=== PATIENT | female | born 1980 | race Caucasian/White ===

== ENCOUNTER → 2017-03-28 | Day surgery (SDC) | payer BC ==
[~2017-03-28] MED LIST: ACETAMINOPHEN 1000 MG/100 ML 100 ML IV ONE; BUPIVACAINE HCL PF 0.5% 30 ML VIAL ONE; CHLORHEXIDINE GLUCONATE 2 % 1 PACK (2 CLOTHS) TOPICAL PRN; DEXAMETHASONE SOD PHOS 4 MG/ML VIAL IV ONE; DO NOT ADM ANY ANTICOAGULANT DRUGS PRN; FERRIC SUBSULFATE 8 ML TOP SOLN TOPICAL ONE; GLYCOPYRROLATE 1 MG/5 ML SYRINGE IV PUSH ONE; GUMMCHW PO; INSULIN HUMAN REGULAR 1,000 UNITS/10 ML VIAL SQ PRN; KETOROLAC TROMETHAMINE 30 MG/ML (IVP) VIAL IV PUSH ONE; LACTATED RINGER'S 1000 ML IV PRN; LIDOCAINE 0.5%/EPINEPHrine 1:200,000 SOLN 50 ML VIAL ONE; LIDOCAINE HCL 1% PF 5 ML AMPULE OTHER ONE; LISI10TA3 PO; METOPROLOL TARTRATE 25 MG TAB PO PRN; MIDAZOLAM HCL 2 MG/2 ML VIAL IV ONE; NEOSTIGMINE 3 MG/3 ML SYR IV ONE; ONDANSETRON HCL 4 MG/2 ML VIAL IV PUSH ONE; PHENYLEPH/NS 1000 MCG/10 ML SYR IV ONE; POVIDONE IODINE 5% (ANTISEPSIS KIT) 4 APPLICATIONS EACH NARE PRN; PROPOFOL 200 MG/20 ML AMP IV ONE; ROCURONIUM INJ 50 MG/5 ML SYRINGE IV PUSH ONE; SACC1CAP3 PO; SODIUM CHLORID 0.9% 500 ML IV PRN; TYLE325T PO; ceFAZolin INJ 1,000 MG VIAL ONE; metroNIDAZOLE 500 MG INJ 100 ML IV ONE
[2017-03-28 13:40] LABS: AUTOMATED NEUTROPHIL # 6.4 TH/MM3 (1.8-7.7); BASOPHIL % 0.4 % (0.0-2.0); EOSINOPHIL # 0.1 TH/MM3 (0-0.4); EOSINOPHIL % 1.6 % (0.0-4.0); HEMATOCRIT 44.6 % (35.0-46.0); HEMOGLOBIN 15.3 GM/DL (11.6-15.3); LYMPH % 22.5 % (9.0-44.0); MEAN CORPUSCULAR HGB CONC 34.4 % (32.0-36.0); MEAN PLATELET VOLUME 9.1 FL (7.0-11.0); MONO % 4.6 % (0.0-8.0); MONOCYTE # 0.4 TH/MM3 (0-0.9); NEUT % 70.9 % (16.0-70.0); PLATELET COUNT 273 TH/MM3 (150-450); RED BLOOD COUNT 4.95 MIL/MM3 (4.00-5.30)
[2017-03-28 17:40] VITALS: BP 119/59; PULSE 80; RESP 20; TEMP 97.3; O2SAT 97
--- NOTE | 2017-03-29 07:27 | MP ---
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 PROCEDURE Fistulotomy and curettage of fistula tract. ANESTHESIA General endotracheal SURGEON Dr. Jacobson S[employer]VERL[employer] DEVELOPER Dr. Leong ESTIMATED BLOOD LOSS 5 cc OPERATIVE FINDINGS [place] four [place] ago with a previously multiple times drained left anterior ischiorectal abscess. The patient had multiple incision and drainages of this abscess and continued to drain pus and would not heal. Therefore, we felt as if this was probably due to a fistula in ano. It has probably been going on for about seven months. At surgery today, the external opening was identified and there was an iodoform gauze packed in the external opening previously by the patient that was removed. A fistula probe was placed and the fistula tracked to the left ischiorectal fossa anteriorly to around the dentate line in the midline. It did not involve the anorectal ring, but did involve some subcutaneous external sphincter and a small portion of the internal sphincter. Fistulotomy was done and outside of the sphincter complex to the left of the vagina, a blind sinus tract was noted above that area. This was curetted clean, as well as the base of the fistula site. Because it did not include a large amount of the sphincter muscle complex, I did not elected to do an anterior advancement flap. OPERATIVE TECHNIQUE The patient was placed on table in the prone position after adequate general tracheal anesthesia with the buttocks taped apart. The buttocks and perianal region was prepped and draped in the usual manner and then the perianal region was injected with 0.5% Xylocaine with epinephrine mixed with an equal amount of 0.5% Marcaine using approximately 30 cc in the subcutaneous and submucosal region circumanally. Once this was done, the Pa bivalve was inserted into the anal canal and the external opening was identified and the curved probe was placed in the external opening and the probe tracked anteriorly to the anterior midline at the dentate line identifying the internal opening of the fistula which was wide open and chronically scarred. Fistulotomy was done of the anoderm and skin out to the external opening and then the muscle was palpated, the subcutaneous external sphincter and a very small portion of the internal sphincter. The majority of the external sphincter was spared and we were well distal to the anorectal ring. Fistulotomy was done through the muscle to the base of the fistula tract. The fistula tract was curetted. Outside the muscle complex lateral to the vagina was a blind sinus tract that went superior. This was curetted clean as was the base of the fistula tract. Once this was done, hemostasis was obtained with electrocautery. The fibrous tissue all around was excised leaving a soft open wound. The excess skin and fibrous tissue was further excised superiorly and inferiorly and Monsel's solution was placed on the oozing subcutaneous tissue and in the blind sinus tract. Next, the blind sinus tract was packed with a 4x4 gauze using a corner of the gauze and then the remainder of the wound was packed with 4x4 gauze and an ABD was applied. Sponge, needle and instrument counts were reported as correct. Estimated blood loss was 5 cc. The patient tolerated the procedure well and left the operating room in good condition. MD TORITO Oviedo/GASPER /4:49 PM /7:09 AM
== END | disposition home or self-care (01) ==
LOC: HSDC 12:24
PROVIDERS: ATTEND Colon & Rectal Surgery
DX: K61.3 Ischiorectal abscess (principal); K60.3 Anal fistula; L85.9 Epidermal thickening, unspecified; I10 Essential (primary) hypertension
CPT/HCPCS: 00902; 46270; 85025; 88305; J0131; J0690; J1100; J1885; J2250; J2370; J2405; J2710; J3010; J7120; 88304